=== PATIENT | female | born 1995 | race Caucasian/White ===

== ENCOUNTER 2023-03-07 17:45 | Emergency (ER) | payer SELFPAY ==
[2023-03-07 17:57] VITALS: BP 123/86; PULSE 66; RESP 16; TEMP 36.7; O2SAT 100
--- NOTE | 2023-03-07 18:20 | ED.FEMALEGU ---
HPI - Female Genitourinary General Chief complaint: Urogenital-Female Stated complaint: Female Urogenital Time Seen by Provider: 03/07/23 18:20 Source: patient and RN notes reviewed Mode of arrival: ambulatory Limitations: no limitations History of Present Illness HPI Narrative: 27-year-old female presenting for complaint of burning with urination, frequency, and urgency for 4 days. Reports odor to urine and pain across the lower back area. Currently on menses, which started 4 days ago. Denies associated nausea, vomiting, diarrhea, flank pain, fevers or chills. Not taking anything for symptoms. Denies concern for STD. Related Data Allergies Allergy/AdvReac Type Severity Reaction Status Date / Time No Known Allergies Allergy Verified 03/07/23 18:11 Review of Systems Review of Systems: CONSTITUTIONAL: Denies body aches, fever, chills, or sweats. CARDIOVASCULAR: Denies chest pain, palpitations, or edema. RESPIRATORY: Denies cough or dyspnea. GASTROINTESTINAL: Denies abdominal pain, nausea, vomiting, or diarrhea. GENITOURINARY: Reports dysuria, frequency, urgency, denies hematuria, flank pain SKIN: Denies rash, itching, or wounds. MUSCULOSKELETAL: Reports back pain PMFSH Past Medical History Medical History (Updated 03/07/23 @ 18:33 by Esther Leblanc, [facility]) No pertinent past medical history Comments At time of signature, I have reviewed and agree with nursing past medical, surgical, social and family history unless otherwise noted. Please see nursing chart for further information. There is no relevant family history pertinent to the presenting complaint Exam Narrative: GENERAL: Well-appearing and in no acute distress. HEAD: Normocephalic EYES: EOMI. . ENT: Mucous membranes pink and moist. NECK: Normal AROM. Supple. CHEST: No respiratory distress. Clear to auscultation. HEART: Regular rate and rhythm. ABDOMEN: Soft, nontender, nondistended, normal active bowel sounds. No CVA tenderness MUSCULOSKELETAL: No bony tenderness. SKIN: Warm, dry, no rash. NEURO: No focal deficits. Alert and oriented x3. Gait steady. PSYCH: Normal affect. Course Course Emergency Course: Patient is aware of diagnosis, understands and agrees to treatment plan. Anticipatory guidance given. Patient agrees to follow-up as directed and is aware of reasons to seek care at the emergency department. Portions of this record may have been created with voice recognition software Level of Care: Express Care Visit Vital Signs Vital signs: Vital Signs Temperature 98.1 F 03/07/23 17:57 Pulse Rate 66 03/07/23 17:57 Respiratory Rate 16 03/07/23 17:57 Blood Pressure 123/86 03/07/23 17:57 Pulse Oximetry 100 03/07/23 17:57 Oxygen Delivery Room Air 03/07/23 17:57 Temperature 98.1 F 03/07/23 17:57 Pulse Rate 66 03/07/23 17:57 Respiratory Rate 16 03/07/23 17:57 Blood Pressure 123/86 03/07/23 17:57 Pulse Oximetry 100 03/07/23 17:57 Oxygen Delivery Room Air 03/07/23 17:57 Reviewed MDM - Female Genitourinary MDM Narrative Medical decision making narrative: Results of urine dip reviewed with patient. Rx macrobid. Advised supportive measures and signs/symptoms to go to the ER. Pt is appropriate for outpt treatment and f/u. Differential Diagnosis Differential diagnosis: Likely urinary tract infection, bacterial vaginosis, vaginitis and cystitis Lab Data Labs: Urine Glucose Negative Reference Range: Negative Urine Bilirubin Negative Reference Range: Negative Urine Ketone Negative Reference Range: Negative Urine Specific Patten 1.015 Reference Range:1.001-1.035 Urine Blood 1+
== END 2023-03-07 18:51 | disposition home or self-care (01) ==
PROVIDERS: Emergency Provider Nurse Practitioner Family
DX: R30.0 Dysuria (principal)
CPT/HCPCS: 81003; 87077; 87086; 87186; 99203; G0463